=== PATIENT | male | born 2000 | race Caucasian/White ===

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

== ENCOUNTER 2021-03-05 07:30 | Outpatient (RCR) | payer OTHER, SELFPAY ==
[2021-01-19 08:38] VITALS: BMI 27.6
--- NOTE | 2021-01-19 13:05 | HP.OTEVAL_ITS ---
Patient's Visit Information CARLEE BONNER is a 20 year old M, referred to Occupational Therapy by LONNIE Story, with a diagnosis of right ulna fx with DRUJ sprain/strain. Date of Evaluation: 01/19/21 Occupational Therapist: Sandra Badillo, OTR/Bing, CHT - Subjective This 20 year old male was seen for OT eval with dx of ulnar fx with DRUJ sprain/strain- pt states date of Injury was December 16, 2020 pt states he had a fall while playing basketball. pt states he went the next day for x ray and than was casted until today- has right wrist brace on. pt concerns with ROM and stiffness some pain. right handed. 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 pt is hopeful to return to play soon. - Pain right wrist 3 Pain Intensity Range: 1, 4 - ROM Forearm: right sup WFL pronation 30* left WNL Wrist: right 50/40 left 70/50 ROM Comments: pt demo full digit and thumb ROM - Strength Door Frame Builder: right 40# left 110# Lateral Pinch: right 12# left 12# Tripod Pinch: right 6# left 12# - Sensation Sensation Comments: denies - Quick DASH-Disab of Arm,Shoulder& Hand Quick DASH Score: 42.1050 - Goals Goal:: Pt will demo a increase in right supervisor of instruction strength to 80# or greater to return pt to PLOF by d/c Goal:: pt will demo right forearm pronation to 85* or greater to return pt to PLOF by d/c. pt will demo a increase in right wrist flex/ext by 15* or greater to increase pts ind. with ADLs by d/c Goal:: pt will report no pain greater than 1/10 with use of right UE with ADls and IADls- sports by d/c - Rehabilitation General Assessment: Pt is 4 weeks and 6 days from fx. pt demo with limited forearm pronation, wrist ROM and strength limiting pts ind. with ADLs and IADLS. pt would benefit from skilled OT services 2x week for 6 weeks to return pts ROM and strength to return to PLOF. Today therapist ed. pt on AAROM exercises and that therapy would transition to strengthening once pt demo functional ROM. pt demo understanding and agree to POC. Rehabilitation Potential: Good - Anticipated Interventions A/AAROM/PROM, Strengthening, Triggerpoint Release, Modalities, Joint Protection/Energy Conservation, Ergonomic Education - Visit Plan Frequency: 2x /Week Duration: 6 Weeks TEXT: Thank you for the opportunity to evaluate your patient. For Medicare and Medicare HMO plans, please review the plan of care and approve it. It will need to be FAXED BACK to us at [phone] for Medicare purposes. Please let me know if there are questions or concerns regarding this plan of car e. Physician Signature: Date:
--- NOTE | 2021-02-11 10:01 | HP.OTDCSUM ---
It has been my pleasure to treat CARLEE BONNER under orders from LONNIE Story, for the diagnosis of right ulna fx with DRUJ sprain/strain for a total of 9 visit(s). Please see the following information for a summary of their discharge status. % Improvement: 75 Objective/Function: Therapist remeasured pt before session: Right nuclear weapons specialist: 100# (left 110#), Lateral pinch: 24# (left: 24#), and 3-jaw deon pinch: 22# (Left 22#). Before session, ext/flex was measured at 60*/70*, and pronation was measured at 75*. After session and paraffin: Ext/ flex: 70*/75* and pronation: 75*. At the initial Eval: Right ext/flex was 50*/40*, and right pronation was 30*. Patient Goals: Regain Mobility, Regain Strength, Use Hand/Wrist/Arm Normally Again Goal:: Pt will demo a increase in right nuclear weapons specialist strength to 80# or greater to return pt to PLOF by d/c Goal:: pt will demo right forearm pronation to 85* or greater to return pt to PLOF by d/c. pt will demo a increase in right wrist flex/ext by 15* or greater to increase pts ind. with ADLs by d/c Goal:: pt will report no pain greater than 1/10 with use of right UE with ADls and IADls- sports by d/c Plan: D/c Discharge Comments: pt was seen for 9 visits to increase ROM, an increase strength, and a decrease in pain in his R wrist after a fx. Pt has met 3/4 goals, and has returned to a functional level to return to sports and ADLs/IADLs. Pt to see his doctor this week for d/c. Pt agrees with d/c and understand precautions with returning to sports. If there are questions or concerns regarding this patient's occupational therapy, please fell free to call me at [phone]. Thank you for the referral of this patient. Sincerely, Sandra Badillo, OTR/L, CHT
--- NOTE | 2021-02-26 09:39 | HP.OTREVAL ---
LONNIE Story, It has been my pleasure to treat CARLEE BONNER over the last 11 visits for right ulna fx with DRUJ sprain/strain. Please see the progress note below for an update on the occupational therapy plan of care! Subjective: on Tuesday pt injured his right arm while participating in [employer] youth [employer]- pt states he went up to swat a basketball that was caught between the backboard and hoop. pt reports his wrist feels like it did when he broke it the 1st time. Pt arrived 15 minutes late, stating that no change has occurred since Tuesday. He goes to the doctor tomorrow and is hopeful nothing is broken again. Objective/Function: Therapist was able to elicit pain with palpation but not with resistive wrist flex/ext or forearm supination and pronation. pt demo the ability to perform push off test for TFCC but was negative. Increased US to 100%. Pt doc well, stating that when the US ran under the head of the Ulnar, he could feel it running over something, but it didn't hurt. Plan Plan: advised pt to return to dr. initiate wearing his brace again and to ice 2x a day Goals - Goals Patient Goals: Regain Mobility, Regain Strength, Use Hand/Wrist/Arm Normally Again Goal:: Pt will demo a increase in right factory supervisor strength to 80# or greater to return pt to PLOF by d/c Goal:: pt will demo right forearm pronation to 85* or greater to return pt to PLOF by d/c. pt will demo a increase in right wrist flex/ext by 15* or greater to increase pts ind. with ADLs by d/c Goal:: pt will report no pain greater than 1/10 with use of right UE with ADls and IADls- sports by d/c Anticipated Interventions Anticipated Interventions: A/AAROM/PROM, Strengthening, Triggerpoint Release, Modalities, Joint Protection/Energy Conservation, Ergonomic Education Therapist was able to elicit pain with palpation but not with resistives wrist flex/ext or forearm supination and prontation. pt demo the ability to perform push off test for TFCC but was negative. Please do not hesitate to contact me at [phone] by phone or if you have questions or concerns regarding this new plan of care! Sincerely, Sandra Badillo, OTR/L, CHT
--- NOTE | 2021-08-13 13:57 | HP.OT.NRP ---
CARLEE BONNER was seen in my office for initial evaluation on 01/19/21. The following Plan of Care was established for this patient: Initial Frequency: 2x /Week Initial Duration: 6 Weeks Plan: Waiting on an MRI Anticipated Interventions: A/AAROM/PROM, Strengthening, Triggerpoint Release, Modalities, Joint Protection/Energy Conservation, Ergonomic Education This patient was last seen in our office 03/05/21. Pertinent comments regarding their Occupational therapy will appear below: Due to time lapse in services pt D/C from OT. At this point I will be discontinuing this patient from occupational therapy. I would be happy to see this patient again in the future if found appropriate by the physician. Thank you! Sandra Badillo, OTR/L, CHT
== END 2021-03-05 19:00 | disposition home or self-care (01) ==
LOC: OT 07:30
PROVIDERS: Referring Provider Physician Assistant; Visit Provider Physician Assistant
DX: S52.601D Unspecified fracture of lower end of right ulna, subsequent encounter for closed fracture with routine healing (principal); X58.XXXD Exposure to other specified factors, subsequent encounter
CPT/HCPCS: 97035; 97110; 97140; 97166; 97530

== ENCOUNTER → 2021-03-18 12:31 | Outpatient (CLI) | payer OTHER, SELFPAY ==
[2021-02-27 13:24] VITALS: BMI 27.6
--- NOTE | 2021-03-18 12:32 | MRI_ITS ---
STUDY: MRI RIGHT WRIST WITHOUT CONTRAST REASON FOR EXAM: Right wrist pain, prior ulnar fracture with reinjury in February. TECHNIQUE: Standardized fat and water weighted pulse sequences were obtained in all 3 orthogonal planes. COMPARISON: Radiographs 02/27/2021. FINDINGS: Normal visualized distal radius. There is a nondisplaced fracture of the ulnar styloid process without osseous union (T2 sagittal image 9; T1 coronal images 11, 12) with bone edema (inversion recovery coronal images 11, 12). Normal distal radioulnar articulation (DRUJ). Normal triangular fibrocartilaginous complex (TFCC). Normal carpal bones. Normal radiocarpal, intercarpal and midcarpal articulations. Normal pisotriquetral articulation. Normal visualized interosseous scapholunate and lunotriquetral ligaments. Normal extensor tendons. Normal flexor tendons. Normal carpal tunnel with a normal median nerve. Normal carpometacarpal articulation of the thumb. Normal second through fifth carpometacarpal articulations. Normal visualized metacarpal bones. There is no demonstrated soft tissue abnormality. MRI/Upper Ext Joint Only(Routine) IMPRESSION: Nondisplaced fracture of the ulnar styloid process without osseous union and with bone edema. Electronically Signed: Bebo Barrera MD at 14:04 EDT Tel , Service support ,
== END ==
PROVIDERS: Referring Provider Physician Assistant; Visit Provider Physician Assistant
DX: S69.80XA Other specified injuries of unspecified wrist, hand and finger(s), initial encounter (principal); S69.91XA Unspecified injury of right wrist, hand and finger(s), initial encounter
CPT/HCPCS: 73221

== ENCOUNTER 2025-06-26 11:16 | Emergency (ER) | payer BC, SELFPAY ==
[2025-06-26 11:16] VITALS: BP 170/99; PULSE 116; PULSE 119; RESP 16; TEMP 36.8; O2SAT 98; BMI 34.2
--- NOTE | 2025-06-26 11:31 | EX.ED.DYSGE1 ---
HPI History of Present Illness Chief Complaint: Complaint Informant: patient Narrative Narrative: 25-year-old male presenting to the emergency room with blood in his urine. Patient states that for the past couple weeks he has had some burning with urination. He describes the burning as being the tip of his penis. He states that today he noticed blood and burning with urination. He has no history of UTI, he does not know if he is circumcised, he denies any known direct trauma. He is recently . He states that they have been sexually active recently and has been using the occasional lubricant. However he has used that same lubricant in the past without any issues. He denies any testicular issues. No fever. He states he did have a viral upper respiratory infection a couple weeks ago. He denies any inguinal swelling or genital sores. He has never had a kidney stone. [facility] Medical History Closed nondisplaced fracture of styloid process of right ulna Sprain of right hand Right wrist sprain Home Medications ?Medication ?Instructions ?Recorded ?Last Taken ?Type sulfamethoxazole 800 1 tab PO BID #10 TABLETS 06/26/25 Unknown Rx mg-trimethoprim 160 mg tablet Allergy/AdvReac Type Severity Reaction Status Date / Time No Known Allergies Allergy Verified 04/15/21 13:43 Social History Smoking Status: Never smoker ROS ROS ED Constitutional Constitutional ED: Denies chills, fever(s) or weight loss Eyes Eyes: Denies change in vision or diplopia ENT ENT ED: Denies ear pain, rhinorrhea or sore throat Cardiovascular Cardiovascular: Denies chest pain, orthopnea, palpitations or racing heartbeat Respiratory/Chest Respiratory/Chest: Denies cough, dyspnea or orthopnea Gastrointestinal Gastrointestinal: Denies abdominal pain, diarrhea, nausea or vomiting Genitourinary Genitourinary ED: Reports dysuria and hematuria; Denies urinary frequency Musculoskeletal Musculoskeletal: Denies arthralgias or myalgias Integumentary Denies abscess or rash Neurologic Neurologic: Denies headache(s) or weakness Psychiatric Psychiatric: Denies anxiety, depression, suicidal ideation or suicidal thoughts Endocrine Endocrinology: Denies polydipsia, polyphagia or polyuria Allergic/Immunologic Allergic/Immunologic ED: Denies mouth swelling, tongue swelling or urticaria EXAM Physical Exam Const Vital Signs: 06/26/25 11:16 06/26/25 11:16 Temperature 98.3 F Temperature Source Temporal Pulse Rate 116 H 119 H Respiratory Rate 16 Blood Pressure 170/99 H Blood Pressure Mean 122 Pulse Ox 98 Oxygen Delivery Method Room Air Positive well nourished and well developed General Appearance ED: well developed and NAD HEENT Reports normocephalic, head/scalp atraumatic and moist mucous membranes Eyes PERRL and EOMs intact bilaterally Neck no lymphadenopathy, supple and no JVD Resp normal respiratory effort and clear to auscultation bilaterally Cardio regular rate, regular rhythm and no murmurs GI normal to inspection, nondistended, normoactive bowel sounds and non-tender Palpation: soft Narrative: Circumcised male. I do not see any local trauma around the meatus. I do see a small amount of blood in the meatus but cannot see an obvious source. Testicular exam appears normal. No lesions are seen. Back/Spine no CVA tenderness and normal ROM Extremity normal to inspection General Extremety ED: Negative for edema General Extremity: Negative for edema Neuro oriented x3 and CN's II-XII intact bilaterally Sensorium / Orientation: alert Motor Exam: strength 5/5 throughout Psych mental status grossly normal Mood & Affect: Negative for depressed or tearful Skin no rashes or lesions noted and no wounds MDM MDM MDM Narrative Medical decision making narrative: Differential diagnosis includes but not limited to urethritis cystitis kidney stone renal cyst urethral trauma prostatitis Urinalysis demonstrates 5-10 red cells and rare bacteria 0-5 white cells 25 leukocyte esterase negative nitrates. He CT without contrast was obtained. No obvious stone is noted. I do not see obvious renal cyst. Please see the radiologist read for full details. I have asked that the lab perform a urine culture. In the interim I think there is enough symptomology and UA findings that we can place him on Bactrim. If his symptoms persist early return he needs to see urology. Patient is are comfortable with this plan. History & Record Review Discussion w/independent historian: Patient and Significant other Lab Data Attestation: I reviewed the patient's lab results. Labs: Laboratory Results - last 24 hr 06/26/25 11:39 Urine Color Yellow Urine Clarity Clear Urine pH 6.0 Ur Specific [place] 1.020 Urine Protein 30 H Urine Glucose (UA) Normal Urine Ketones Negative Urine Occult Blood 150 H Urine Nitrite Negative Urine Bilirubin Negative Urine Urobilinogen Normal Ur Leukocyte Esterase 25 H Urine RBC 5-10 SEEN Urine WBC 0-5 SEEN Ur Squamous Epith Cells 0-5 SEEN Urine Bacteria RARE Urine Mucus 0 SEEN Radiography Diagnostic Testing: Clinical Impression(s) from Imaging Studies Abdomen/Pelvis CT 06/26/25 12:10 IMPRESSION: No acute abnormality is seen. Reading Location: [id number] Discharge Plan Triage Chief Complaint: Complaint ED Provider: Bulmaro Rodney Dx/Rx/DC Orders Clinical Impression: Hematuria, Dysuria Instructions: What is Hematuria?, ED Dysuria, Uncertain Cause (Adult), ED Cystitis Male Ch Prescriptions: New sulfamethoxazole-trimethoprim 800-160 mg tablet 1 tab PO BID Qty: 10 0RF Primary Care Provider: Care Physician,No Primary Referrals: Henry Handy MD [Med Staff - Active Staff, Urology] Referral Note: if symptoms return or persist Care Physician,No Primary [Primary Care Provider, Medical] Print Language: Wolof Disposition Disposition: Home, Self Care
[2025-06-26 11:44] LABS: Mucous, Urine 0 SEEN /hpf (<or=2+)
[2025-06-26 11:45] LABS: Color, Urine Yellow (Yellow); Glucose, Dipstick Normal (Normal); Ketone-Dipstick Negative (Negative); Leukocyte Esterase-Dipstick 25 /ul (Negative); Nitrite-Dipstick Negative (Negative); Occult Blood-Urine 150 /ul (Negative); Protein-Dipstick 30 mg/dl (Negative); Specific Gravity, Urine 1.020 (1.002-1.030); Urine Bilirubin Dipstick Negative (Negative)
[2025-06-26 11:54] LABS: Red Blood Cells-Urine 5-10 SEEN /hpf (0-5); Squamous Epithelial Cells - UA 0-5 SEEN /hpf (0-5)
--- NOTE | 2025-06-26 12:10 | CT_ITS ---
PROCEDURE: ABDOMEN/PELVIS WITHOUT CONT 06/26/2025 REASON FOR EXAM: HEMATURIA TECHNIQUE: Procedure Code: [id number] Modality: CT Procedure: ABDOMEN/PELVIS WITHOUT CONT Noncontrast technique limits evaluation of the abdominal and pelvic viscera. Coronal and Sagittal reconstruction series were provided. One or more dose reduction techniques were used (e.g., Automated exposure control, adjustment of the mA and/or kV according to patient size, use of iterative reconstruction technique). RADIATION DOSE SUMMARY: CTDlvol: 17.09 mGy DLP: 1071.8 mGycm COMPARISON: None FINDINGS: Lung bases: The lung bases are clear. Liver: Normal size. No obvious mass. Gallbladder: Unremarkable Spleen: Borderline splenomegaly. Pancreas: Normal size. No surrounding inflammation. Adrenals: Unremarkable Kidneys: No urolithiasis. No hydronephrosis. Bladder: Unremarkable Bowel: Unremarkable Appendix: Unremarkable Lymph nodes: Unremarkable. Vasculature: The abdominal aorta and IVC contours are normal. Noncontrast technique limits evaluation. Peritoneum / Retroperitoneum: Unremarkable Bones: Unremarkable CT/Abdomen/Pelvis without Cont IMPRESSION: No acute abnormality is seen. Reading Location: [id number]
[2025-06-26 13:20] VITALS: BP 174/92; PULSE 107; RESP 16; TEMP 36.6; O2SAT 99
--- OUTSIDE RECORDS SUMMARY | 2025-06-26 13:40 | XMS RPT_ITS | CCD ---
Author Organization [facility] CliniSyal Care Team Providers Care Pay Station Department Manager Name Role Phone Leonarda Rosenberg Attending Unavailable PEYMAN ASENCIO Primary Care Unavailable Leonarda Rosenberg Attending Unavailable PEYMAN ASENCIO Primary Care Unavailable Unavailable Primary Care Provider UnavailTIM Stark Referring Unavailable Unavailable Primary Care Provider Unavaildennis lux Problems Problem Classification Problem Date Documented Date Episodic/Chronic Other liver diseases (2 sources) Nonspecific elevation of levels of transaminase and lactic acid dehydrogenase [LDH]; Translations: [Nonspecific elevation of levels of transaminase and lactic acid dehydrogenase [LDH]] Onset: 12-05-2018 Episodic Other non-traumatic joint disorders (2 sources) Acute ankle pain; Translations: [Pain in left ankle and joints of left foot] Episodic Other non-traumatic joint disorders (1 source) Pain in left ankle and joints of left foot; Translations: [Acute left ankle pain] Onset: 11-22-2022 Episodic Other skin disorders (2 sources) Acne vulgaris; Translations: [Acne vulgaris] Onset: 11-21-2018 Episodic Results Test Name Value Interpretation Reference Range Facil ity CNPNon 11-23-2022 CNPN Telephone (UCTR) ROBE BONNER ([id number]) 2 M Date Time Provider Department 11/23/22 SANDRA NEAL [facility] During your visit today, we recorded the following information about you: Sandra Neal APRN.CNP 11/23/2022 9:49 AM Signed Please confirm with patient that radiologist read as no fracture. Follow up with PCP for any continued problems. aSndra Neal APRN.RAMANDEEP Salvador LPN 11/23/2022 10:04 AM Signed Phone call placed, patient advised (see prior provider encounter) Patient verbalized understanding, agreed with plan of care. Raven Salvador LPN Allergies As of Date: 11/23/2022 (No Known Allergies) Date Reviewed: 11/22/2022 Reviewed by: Lucita Fishman - Fully Assessed Reason for Visit: Results [95] Problem List As Of Date: 11/23/2022 (None) Encounter Status:Closed by RAVEN SALVADOR LPN on 11/23/22 Normal [facility] XR Ankle - left AP and Later al and obliqueon 11-23-2022 IMPRESSION: Lateral soft tissue swelling without radiographic evidence of acute osseous injury. Websphere Portal Developer: DEAN Transcribe Date/Time: Nov 23 2022 8:46A Dictated by : PETE BELL MD This examination was interpreted and the report reviewed and electronically signed by: PETE BELL MD on Nov 23 2022 8:47AM [facility] DIVISION OF RADIOLOGY * * *Final Report* * * DATE OF EXAM: Nov 22 2022 7:03PM WOX 5298 - XR ANKLE 3V AP/LAT/OBL LT / PROCEDURE REASON: Acute left ankle pain * * * * Physician Interpretation * * * * TITLE: XR ANKLE 3V AP/LAT/OBL LT CLINICAL INDICATION: Ankle pain TECHNIQUE: 3 view radiographic study of the left ankle COMPARISON: None FINDINGS: Lateral soft tissue swelling. No acute fracture or dislocation identified. DIVISION OF RADIOLOGY Provider, [facility] [place] - 11/23/2022 * * *Final Report* * * DATE OF EXAM: Nov 22 2022 7:03PM WOX 5298 - XR ANKLE 3V AP/LAT/OBL LT / PROCEDURE REASON: Acute left ankle pain * * * * Physician Interpretation * * * * TITLE: XR ANKLE 3V AP/LAT/OBL LT CLINICAL INDICATION: Ankle pain TECHNIQUE: 3 view radiographic study of the left ankle COMPARISON: None FINDINGS: Lateral soft tissue swelling. No acute fracture or dislocation identified. IMPRESSION IMPRESSION: Lateral soft tissue swelling without radiographic evidence of acute osseous injury. Websphere Portal Developer: PSCB Transcribe Date/Time: Nov 23 2022 8:46A Dictated by : PETE BELL MD This examination was interpreted and the report reviewed and electronically signed by: PETE BELL MD on Nov 23 2022 8:47AM EST [facility] XR Ankle - left AP and Later al and obliqueOrdered By: Ccf Provider on 11-23-2022 [facility] CNOVon 11-22-2022 CNOV Office Visit (UCWSTR) ROBE BONNER ([id number]) 2 M Date Time Provider Department 11/22/22 6:30 PM TIM FRANCOIS [facility] During your visit today, we recorded the following information about you: Temperature Pulse Respiration Blood pressure 98.5 degrees 110/minute 16/minute 142/88 Weight 101.2 kg Tim Francois MD 11/22/2022 7:28 PM Addendum Patient presents with: Ankle Injury: left, playing basketball twisted x 2 hours HPI: Left ankle pain: Duration: twisted this afternoon. Location: above the left lateral malleolus Character: sharp Radiation: No. Aggravating: bearing weight Relieving: walking boot Pain relievers: none Associated: swelling Pertinent negatives: Denies numbness The software trainer at the [facility] recommended getting an xray. PAST MEDICAL HISTORY Diagnosis Date NEGATIVE MEDICAL HISTORY PAST SURGICAL HISTORY Procedure Laterality Date NONE MEDICATIONS: No prescriptions on file. ALLERGIES: ALLERGIES No Known Allergies VITALS: BP 142/88 Pulse 110 Temp 36.9 ?C (98.5 ?F) Resp 16 Wt 101.2 kg (223 lb) SpO2 100% PE: Pleasant, in no acute distress. Wearing walking boot. ANKLE: left. Swelling present at and above the lateral malleolus. No erythema, ecchymosis, or deformity. Range of motion: inversion - painful, eversion - painful, anterior drawer- no laxity. painful to bear weight. limping gait. Palpation: Medial malleolus non-painful, lateral malleolus painful, Dorsal proximal midfoot - non-painful, proximal 5th metatarsal non-painful, posterior calcaneus non-painful ASSESSMENT/PLAN: 1. Acute left ankle pain - ICD9: 719.47, ICD10: M25.572 - XR ANKLE GENERAL 3V AP/LAT/OBL LEFT - no acute fracture or dislocation. Radiology interpretation is pending. The patient will be notified if there is a significant finding in the report not discussed at the time of the visit. Rest, ice, analgesia. Advance activity as tolerated. Tim Francois MD Referring Provider: SELF [200] Allergies As of Date: 11/22/2022 (No Known Allergies) Date Reviewed: 11/22/2022 Reviewed by: Lucita Fishman - Fully Assessed Reason for Visit: Ankle Injury [7] Cmt: left, playing basketball twisted x 2 hours Primary Visit Diagnosis:Acute left ankle pain [M25.572] Order(s):XR ANKLE GENERAL 3V AP/LAT/OBL LEFT [[id number]] Order #: [id number] FUTURE Problem List As Of Date: 11/22/2022 (None) Encounter Status:Closed by TIM FRANCOIS on 11/22/22 [facility] XR ANKLE 3V AP/LAT/OBL LTon 11-22-2022 XR ANKLE 3V AP/LAT/OBL LT * * *Final Report* * * DATE OF EXAM: Nov 22 2022 7:03PM WOX 5298 - XR ANKLE 3V AP/LAT/OBL LT / PROCEDURE REASON: Acute left ankle pain * * * * Physician Interpretation * * * * TITLE: XR ANKLE 3V AP/LAT/OBL LT CLINICAL INDICATION: Ankle pain TECHNIQUE: 3 view radiographic study of the left ankle COMPARISON: None FINDINGS: Lateral soft tissue swelling. No acute fracture or dislocation identified. IMPRESSION: Lateral soft tissue swelling without radiographic evidence of acute osseous injury. Websphere Portal Developer: DEAN Transcribe Date/Time: Nov 23 2022 8:46A Dictated by : PETE BELL MD This examination was interpreted and the report reviewed and electronically signed by: PETE BELL MD on Nov 23 2022 8:47AM EST [id number] CN Normal [facility] XR Ankle - left AP and Later al and obliqueon 11-22-2022 Radiology Study observation (narrative) [facility] Progress Noteon 03-11-2020 Target Developer Authentication Interface Message Text Patient ID: Robe Bonner is a 19 y.o. male. His chief complaint(s) include: 19 YEAR WELL CHILD Assessment No diagnosis found. Plan There are no diagnoses linked to this encounter. No follow-ups on file. Subjective He is unaccompanied. 19 YEAR WELL CHILD Home: Robe eats meals with family, has an adult to turn to for help, is permitted and able to make independent decisions and has a home risk identified. Robe is not in foster care. Education: Robe is in freshman year of college and is doing well. Activities & Sports: Robe has friends, plays team sports and plays competitive sports. Drugs: Robe does not use tobacco, does not use drugs, does not use alcohol and does not vape. Safety: Robe has a violence free home. Sex: The patient has never had a sexual partner. Suicidality: Robe has ways to cope with stress. Output Urine and Stool Pattern: Urine and Stool Pattern: Normal stool pattern, normal urine pattern. Sleep Sleeping Difficulty: no difficulty sleeping Teen Anticipatory Guidance The following anticipatory guidance was reviewed during the visit: Nutrition: limit junk food/fast food and soft drinks. Safety: home safety, use safety helmet/gear with activities, date violence and don't carry or use weapons. Social: avoid or limit screen time, explore heritage and cultural diversity, parental limits and consequences for unacceptable behavior and bullying. Health: age appropriate dental care, age appropriate sleep habits, elevated noise and hearing, self testicular exam, talk with trusted adult if feeling sad or nervous, discuss athletic conditioning/ weight training/weight supplements, learn to manage time and activities, be responsible for attendance/ homework/ course selection, learn about self and strengths, recognize and deal with stress, driving risks and limit sun exposure/use sunscreen. Screenings Previous Vaccine Reactions: No. Life events information was reviewed-no referral needed Tuberculosis Concerns: Negative Tuberculosis Screen Concerns: no TB Risk Factors Hearing Vision Concerns: The caregiver has no concerns about the patient's hearing. The caregiver has no concerns about the patient's vision. Hyperlipidemia Concerns: Negative Hyperlipidemia Screen Concerns: no Hyperlipidemia Risk Factors Primary Care Review of Systems Objective Vital Signs 03/11/20 1043 BP: 136/72 Pulse: 78 Temp: 36.2 C (97.2 F) TempSrc: Temporal Weight: 93.6 kg Height: 185.4 cm Body mass index is 27.22 kg/m . Physical Exam Nursing note reviewed. Constitutional: He appears well. He is active. No distress. HENT: Head: Atraumatic. Ears: Right Ear: Tympanic membrane and external ear normal. Left Ear: Tympanic membrane and external ear normal. Nose: Nose normal. Mouth/Throat: Mucous membranes are moist. Dentition is normal. Oropharynx is clear. Eyes: Conjunctivae and EOM are normal. No strabismus. Pupils are equal, round, and reactive to light. Neck: Normal range of motion. Neck supple. Thyroid normal. Cardiovascular: Normal rate, regular rhythm, S1 normal and S2 normal. Pulses are palpable. Heart murmur not heard. Pulmonary/Chest: Breath sounds normal. No respiratory distress. Exhibits no deformity. Abdominal: Soft. Bowel sounds are normal. He exhibits no distension and no mass. There is no hepatosplenomegaly. There is no abdominal tenderness. Genitourinary: Testes and penis normal. No inguinal hernia noted. Musculoskeletal: Normal range of motion. Back: He exhibits no scoliosis. Neurological: He is alert. He has normal strength. He exhibits normal muscle tone. Gait normal. Skin: Skin is warm and not pale. Findings: No rash. Vitals reviewed: Blood pressure 136/72, pulse 78, temperature 36.2 C (97.2 F), temperature source Temporal, height 185.4 cm, weight 93.6 kg. Normal [facility] Progress Noteon 05-03-2019 Target Developer Authentication Interface Message Text Established Patient CC: Acne VICKY Nagel is a 19 y.o. 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 His back, chest and face are involved. This has been present for few years and acne scarring is evident. Patient is status post- 5 months of isotretinoin therapy at 40 mg daily first month and then 80 mg daily thereafter. Acne condition is improving- no new acne lesions have erupted this past month. Denies depression/change in mood/suicidal thougths, headaches, abdominal pain/change in bowel habits, myalgias/arthralgias , changes in vision or hearing, eye problems or dryness, or nosebleeds. Reports mild dry skin on face and lips. Using cream/lotion to face and vaseline to lips which have been effective. Labs have been reviewed. Mildly elevated AST in March; plan to recheck if symptomatic. Parent and patient would like to proceed with isotretinoin treatment today. This will be his final month. Past Medical History Past Medical History: Diagnosis Date Acne Past Surgical History No past surgical history on file. Allergies No Known Allergies Medications Outpatient Encounter Medications as of 05/03/2019 Medication Sig Dispense Refill isotretinoin (ACCUTANE) 40 MG capsule Take 2 pills (80 mg) daily. Take with fatty food. 60 Cap 0 [DISCONTINUED] isotretinoin (ACCUTANE) 40 MG capsule Take 2 pills (80 mg) daily. Take with fatty food. 60 Cap 0 hydrocortisone 2.5 % ointment Apply thin layer to affected areas of lips/face/body twice daily until clear (Patient not taking: Reported on 05/03/2019) 30 g 3 Naproxen Sodium (ALEVE) 220 MG CAPS Take by mouth Pediatric Multiple Vit-C-FA (CHILDRENS CHEWABLE VITAMINS) CHEW Take by mouth daily. (Patient not taking: Reported on 05/03/2019) No facility-administere d encounter medications on file as of 05/03/2019. Family Medical History Family History Problem Relation Age of Onset No known problems Mother No known problems Father No known problems Sister No known problems Brother Alzheimer's Disease Maternal Grandfather Social History Social History Socioeconomic History Marital status: Single Spouse name: Not on file Number of children: Not on file Years of education: Not on file Highest education level: Not on file Occupational History Not on file Social Needs Financial resource strain: Not on file Food insecurity: Worry: Not on file Inability: Not on file Transportation needs: Medical: Not on file Non-medical: Not on file Tobacco Use Smoking status: Never Smoker Smokeless tobacco: Never Used Substance and Sexual Activity Alcohol use: Not on file Drug use: Not on file Sexual activity: Not on file Lifestyle Physical activity: Days per week: Not on file Minutes per session: Not on file Stress: Not on file Relationships Social connections: Talks on phone: Not on file Gets together: Not on file Attends sikhism service: Not on file Active member of club or organization: Not on file Attends meetings of clubs or organizations: Not on file Relationship status: Not on file Intimate partner violence: Fear of current or ex partner: Not on file Emotionally abused: Not on file Physically abused: Not on file Forced sexual activity: Not on file Other Topics Concern Not on file Social History Narrative Not on file Social History Tobacco Use Smoking status: Never Smoker Smokeless tobacco: Never Used Substance Use Topics Alcohol use: Not on file Drug use: Not on file Social History Are there any pets in the home? Yes 1 cat, 1 dog Review of Systems Review of Systems Constitutional: Negative. Skin: Positive for skin lesions. Physical Examination Vitals: 05/03/19 1119 Temp: 36.6 C (97.9 F) Physical Exam Constitutional: He appears well-developed and well-nourished. He appears healthy. HENT: Head: Normocephalic and atraumatic. External nose and ears normal without scars, lesions, or masses Psychiatric: He has a normal mood and affect. His behavior is normal. Skin: Area of Skin Examined: face, chest and back. Clearing nodulocystic acne and some scarring to face, chest, and back. Assessment/Plan Robe was seen today for acne. Diagnoses and all orders for this visit: Nodulocystic acne - isotretinoin (ACCUTANE) 40 MG capsule; Take 2 pills (80 mg) daily. Take with fatty food. Plan: Reviewed action of medication, associated risks, and side effects of isotretinoin with patient and parent. Male and female patients instructed to not share their medication with others and must not donate blood while taking this medication and one month thereafter. Rare and uncommon serious side effects were discussed in detail including depression/suicide/c hanges in mood, inflammatory bowel disease, myalgias/arthralgias , changes in vision or hearing, eye problems, hepatotoxicity, dyslipidemia, bone marrow suppression, hyperostosis, premature epiphyseal closure, and pseudomotor cerebri. Patient was instructed to discontinue medication immediately and contact provider with any symptom of these serious side effects (severe or frequent headaches, nausea, vomiting, or blurred vision; depression or changes in mood; severe stomach pain, diarrhea, or bleeding from rectum; very dry eyes; or yellow color in skin or eyes, and/or dark yellow urine). This medication can be stopped abruptly and does not need tapered. Less serious and very common side effects include dry skin and mucous membranes, cheilitis, epistaxis, desquamation, photosensitivity, and pruritis. Most of the adverse effects associated with isotretinoin can be managed without discontinuing the drug. Take this medication with food (best absorbed with fatty food). Counseling has also been provided on prevention of using two methods of contraception or abstinence (if female), discontinuing all previous acne medications, avoiding consumption of alcohol, vitamins, supplements, herbs, or excessive intake of vitamin A. Sun protection is emphasized. Should also delay any elective procedures until 6 to12 months after treatment due to possible abnormal scar formation and/or delayed healing. After discussion of these important issues, the patient/family wishes to proceed with isotretinoin therapy. - Continue isotretinoin 80 mg daily for final month - If patient becomes symptomatic, plan to recheck labs - hydrocortisone 2.5 % ointment; Apply thin layer to affected areas of lips/face/body twice daily until clear - sun protection and frequent application of thick emollients to skin and lips have been emphasized - ipledge # [id number] Cumulative dose after 6 months= 13,200 mg; 139 mg/kg Follow up PRN. Plan of care, including education on the safe and effective use of medication(s) and/or medical equipment if prescribed, was discussed with the patient/family. Patient/family verbalized understanding and agreed with the treatment options discussed. Leonarda Rosenberg, TRANSPORTATION ANALYST-INVENTORY TAKER May 03, 2019 [facility] Progress Noteon 04-10-2019 Target Developer Authentication Interface Message Text Established Patient CC: Acne VICKY Nagel is a 18 y.o. 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 His back, chest and face are involved. This has been present for few years and acne scarring is evident. Patient is status post- 4 months of isotretinoin therapy at 40 mg daily first month and then 80 mg daily thereafter. Acne condition is improving. Denies depression/change in mood/suicidal thougths, headaches, abdominal pain/change in bowel habits, myalgias/arthralgias , changes in vision or hearing, eye problems or dryness, or nosebleeds. Reports mild dry skin on face and lips. Using cream/lotion to face and vaseline to lips which have been effective. Labs have been reviewed. Mildly elevated AST in March; plan to recheck if symptomatic. Parent and patient would like to proceed with isotretinoin treatment today. Past Medical History Past Medical History: Diagnosis Date Acne Past Surgical History No past surgical history on file. Allergies No Known Allergies Medications Outpatient Encounter Medications as of 04/10/2019 Medication Sig Dispense Refill isotretinoin (ACCUTANE) 40 MG capsule Take 2 pills (80 mg) daily. Take with fatty food. 60 Cap 0 hydrocortisone 2.5 % ointment Apply thin layer to affected areas of lips/face/body twice daily until clear 30 g 3 [DISCONTINUED] isotretinoin (ACCUTANE) 40 MG capsule Take 1 Cap (40 mg) by mouth 2 times daily Take with fatty food. 60 Cap 0 Naproxen Sodium (ALEVE) 220 MG CAPS Take by mouth Pediatric Multiple Vit-C-FA (CHILDRENS CHEWABLE VITAMINS) CHEW Take by mouth daily. No facility-administere d encounter medications on file as of 04/10/2019. Family Medical History Family History Problem Relation Age of Onset No known problems Mother No known problems Father No known problems Sister No known problems Brother Alzheimer's Disease Maternal Grandfather Social History Social History Socioeconomic History Marital status: Single Spouse name: Not on file Number of children: Not on file Years of education: Not on file Highest education level: Not on file Occupational History Not on file Social Needs Financial resource strain: Not on file Food insecurity: Worry: Not on file Inability: Not on file Transportation needs: Medical: Not on file Non-medical: Not on file Tobacco Use Smoking status: Never Smoker Smokeless tobacco: Never Used Substance and Sexual Activity Alcohol use: Not on file Drug use: Not on file Sexual activity: Not on file Lifestyle Physical activity: Days per week: Not on file Minutes per session: Not on file Stress: Not on file Relationships Social connections: Talks on phone: Not on file Gets together: Not on file Attends sikhism service: Not on file Active member of club or organization: Not on file Attends meetings of clubs or organizations: Not on file Relationship status: Not on file Intimate partner violence: Fear of current or ex partner: Not on file Emotionally abused: Not on file Physically abused: Not on file Forced sexual activity: Not on file Other Topics Concern Not on file Social History Narrative Not on file Social History Tobacco Use Smoking status: Never Smoker Smokeless tobacco: Never Used Substance Use Topics Alcohol use: Not on file Drug use: Not on file Social History Are there any pets in the home? Yes 1 cat, 1 dog Review of Systems Review of Systems Constitutional: Negative. Skin: Positive for skin lesions. Physical Examination Vitals: 04/10/19 0914 Temp: 36.7 C (98 F) Physical Exam Constitutional: He appears well-developed and well-nourished. He appears healthy. HENT: Head: Normocephalic and atraumatic. External nose and ears normal without scars, lesions, or masses Psychiatric: He has a normal mood and affect. His behavior is normal. Skin: Area of Skin Examined: face, chest and back. Clearing nodulocystic acne and some scarring to face, chest, and back. Assessment/Plan Robe was seen today for acne. Diagnoses and all orders for this visit: Nodulocystic acne - isotretinoin (ACCUTANE) 40 MG capsule; Take 2 pills (80 mg) daily. Take with fatty food. Plan: Reviewed action of medication, associated risks, and side effects of isotretinoin with patient and parent. Male and female patients instructed to not share their medication with others and must not donate blood while taking this medication and one month thereafter. Rare and uncommon serious side effects were discussed in detail including depression/suicide/c hanges in mood, inflammatory bowel disease, myalgias/arthralgias , changes in vision or hearing, eye problems, hepatotoxicity, dyslipidemia, bone marrow suppression, hyperostosis, premature epiphyseal closure, and pseudomotor cerebri. Patient was instructed to discontinue medication immediately and contact provider with any symptom of these serious side effects (severe or frequent headaches, nausea, vomiting, or blurred vision; depression or changes in mood; severe stomach pain, diarrhea, or bleeding from rectum; very dry eyes; or yellow color in skin or eyes, and/or dark yellow urine). This medication can be stopped abruptly and does not need tapered. Less serious and very common side effects include dry skin and mucous membranes, cheilitis, epistaxis, desquamation, photosensitivity, and pruritis. Most of the adverse effects associated with isotretinoin can be managed without discontinuing the drug. Take this medication with food (best absorbed with fatty food). Counseling has also been provided on prevention of using two methods of contraception or abstinence (if female), discontinuing all previous acne medications, avoiding consumption of alcohol, vitamins, supplements, herbs, or excessive intake of vitamin A. Sun protection is emphasized. Should also delay any elective procedures until 6 to12 months after treatment due to possible abnormal scar formation and/or delayed healing. After discussion of these important issues, the patient/family wishes to proceed with isotretinoin therapy. - Continue isotretinoin 80 mg daily - If patient becomes symptomatic, plan to recheck labs - start hydrocortisone 2.5 % ointment; Apply thin layer to affected areas of lips/face/body twice daily until clear - sun protection emphasized - ipledge # [phone] Cumulative dose at 6 months= 13,200 mg; 139 mg/kg Follow up in 30 days. Plan for 6 months of treatment. Plan of care, including education on the safe and effective use of medication(s) and/or medical equipment if prescribed, was discussed with the patient/family. Patient/family verbalized understanding and agreed with the treatment options discussed. Leonarda Rosenberg, TRANSPORTATION ANALYST-INVENTORY TAKER April 10, 2019 Normal [facility] HFPon 12-06-2018 Bili Indirect 0.2 mg/dL Normal 0.1-10.0 [facility] ([place]) Comment on above: Result Comment: Calc ulated by Rule Performed By: #### H FP #### [address] [address] Albumin/Globulin mass ratio 1.4 {ratio} Normal 0.9-1.6 [facility] ([place]) Comment on above: Performed By: #### H FP #### [address] [address] ALP enzyme act/vol 142 U/L Normal 56-238 formerly [facility] ([place]) Comment on above: Performed By: #### H FP #### [place] [id number] [place] [address] Bili Direct 0.1 mg/dL Normal 0.0-0.4 [facility] ([place]) Comment on above: Performed By: #### H FP #### [address] [address] Bili Total 0.3 mg/dL Normal 0.2-1.2 [facility] ([place]) Comment on above: Performed By: #### H FP #### [address] [address] Globulin mass conc (S) 3.3 G/dL Normal 1.5-3.8 [facility] ([place]) Comment on above: Performed By: #### H FP #### [address] [address] Protein mass conc 7.9 G/dL Normal 6.0-8.5 [facility] ([place]) Comment on above: Performed By: #### H FP #### [place] [id number] Albumin mass conc 4.6 G/dL Normal 3.2-4.8 [facility] ([place]) Comment on above: Performed By: #### H FP #### [place] [id number] ALT enzyme act/vol 42 U/L Normal 12-55 [facility] ([place]) Comment on above: Performed By: #### H FP #### [address] [address] AST enzyme act/vol 41 U/L High 8-34 [facility] ([place]) Comment on above: Performed By: #### H FP #### [place] [address] HFP 11-22-2018 Albumin/Globulin mass ratio 1.3 {ratio} Normal 0.9-1.6 [facility] ([place]) Comment on above: Performed By: #### L IPID, HFP #### [address] [address] ALP enzyme act/vol 124 U/L Normal 56-238 [facility] ([place] Comment on above: Performed By: #### L IPID, HFP #### [address] [address] ALT enzyme act/vol 48 U/L Normal 12-55 [facility] ([place] Comment on above: Performed By: #### L IPID, HFP #### [address] [address] Bili Direct 0.1 mg/dL Normal 0.0-0.4 [facility] ([place]) Comment on above: Performed By: #### L IPID, HFP #### [address] [address] Bili Indirect 0.2 mg/dL Normal 0.1-10.0 [facility] ([place]) Comment on above: Performed By: #### L IPID, HFP #### [address] [address] Bili Total 0.3 mg/dL Normal 0.2-1.2 [facility] ([place]) Comment on above: Performed By: #### L IPID, HFP #### [address] [address] Globulin mass conc (S) 3.5 G/dL Normal 1.5-3.8 [facility] ([place]) Comment on above: Performed By: #### L IPID, HFP #### [address] [address] Protein mass conc 8.0 G/dL Normal 6.0-8.5 [facility] ([place]) Comment on above: Performed By: #### L IPID, HFP #### [address] [address] Albumin mass conc 4.5 G/dL Normal 3.2-4.8 [facility] ([place]) Comment on above: Performed By: #### L IPID, HFP #### [address] [address] AST enzyme act/vol 64 U/L High 8-34 [facility] ([place]) Comment on above: Performed By: #### L IPID, HFP #### [address] [address] LIPIDon 11-22-2018 Cholesterol in HDL mass conc 44 mg/dL Normal 40-59 [facility] ([place]) Comment on above: Result Comment: HDL Reference Interval: Less than 40 Low - high risk 60 or above Optimal/lowers risk Performed By: #### L IPID, HFP #### [address] [address] Cholesterol in LDL mass conc 95 mg/dL Normal 0-129 [facility] ([place]) Comment on above: Result Comment: LDL is a calculated result and requires a 12- hr fast. LDL Reference Interval: Less than 100 Optimal 100-129 Near or above optimal 130-159 Borderline high risk 160-189 High risk 190 and above Very high risk Performed By: #### L IPID, HFP #### [address] [address] Triglyceride mass conc 93 mg/dL Normal 3-149 [facility] ([place]) Comment on above: Result Comment: Trig lyceride Reference Interval: Less than 150 Normal 150-199 Borderline high risk 200-499 High risk 500 or higher Very high risk Performed By: #### L IPID, HFP #### [address] [address] Cholesterol mass conc 158 mg/dL Normal 50-199 [facility] ([place]) Comment on above: Result Comment: Chol esterol Reference Interval: Less than 200 Desirable 200-239 Borderline high risk 240 and above High risk Performed By: #### L IPID, HFP #### [address] [address] Vital Signs Date Time Vital Sign Value Performing Clinician Cedric eduardo 11-22-2022 18:37-0400 Body temperature 98.49 [degF] Tim Francois MD Work Phone: [facility] 11-22-2022 18:37-0400 Body weight 101.15 kg Tim Francois MD Work Phone: [facility] 11-22-2022 18:37-0400 Diastolic blood pressure 88 mm[Hg] Tim Francois MD Work Phone: [facility] 11-22-2022 18:37-0400 Heart rate 110 /min Tim Francois MD Work Phone: [facility] 11-22-2022 18:37-0400 Respiratory rate 16 /min Tim Francois MD Work Phone: [facility] 11-22-2022 18:37-0400 SaO2% (BldA) [Mass fraction] 100 % Tim Francois MD Work Phone: [facility] 11-22-2022 18:37-0400 Systolic blood pressure 142 mm[Hg] Tim Francois MD Work Phone: [facility] Encounters Encounter Date Encounter Type Care Provider Facility Start: 11-22-2022 End: 11-22-2022 ambulatory TIM FRANCOIS Facility:[facility] Start: 11-22-2022 End: 11-22-2022 Subsequent hospital visit by physician [facility] Joanne Work Phone: Radiology Comment on above: Acute left ankle wei n [M25.572] Start: 11-22-2022 End: 11-22-2022 Patient encounter procedure Tim Francois MD Work Phone: [facility] Comment on above: Acute left ankle wei n (Primary Dx) Start: 12-05-2018 End: 12-10-2018 Patient encounter procedure [facility] Facility:A Start: 11-21-2018 End: 11-26-2018 Patient encounter procedure [facility] Facility:A Procedures Date Procedure Procedure Detail Performing Clinician Start: 11-22-2022 Radex ankle complete minimum 3 views Tim Francois MD Work Phone: Plan of Treatment Date Care Activity Detail Author Start: 04-08-2024 Covid-19 Vaccine ( season) Covid-19 Vaccine ( season) [facility] Start: 04-08-2024 Influenza vaccination Influenza Vacc ine (#1) [facility] Start: 04-08-2023 Influenza vaccination INFLUENZ A (Season Ended) [facility] Start: 08-08-2022 DEPRESSION ASSESSMENT DEPRESSION ASS ESSMENT [facility] Start: 05-08-2022 Urine microalbumin profile DTaP,Tdap,Td Vaccine (7 - Td or Tdap) [facility] Start: 12-26-2021 COVID-19 VACCINE (4 - Booster for Pfizer series) COVID-19 VACCINE (4 - Booster for Pfizer series) [facility] Start: 2020 Urine microalbumin profile DTAP,TDAP,TD (1 - Tdap) [facility] Start: 04-08-2020 Meningococcal B Vacc ine: Consider Based On Risk (2 of 2 - Risk Bexsero 2-dose series) Meningococcal B Vaccine: Consider Based On Risk (2 of 2 - Risk Bexsero 2-dose series) [facility] Start: 2019 Anxiety Screening Anxiety Screening [facility] Start: 2019 Depression Screening Depression Scre ening [facility] Start: 2019 HEPATITIS C SCREENING HEPATITIS C [facility] Start: 2019 Hepatitis C screening Hepatitis C [facility] Start: 2019 HIV SCREENING HIV SCREENING [facility] Start: 2019 HIV screening HIV Screening [facility] Start: 2015 PEDS TO ADULT TRANSI TION ANNUAL ASSESSMENT PEDS TO ADULT TRANSITION ANNUAL ASSESSMENT [facility] Start: 2013 PEDS TO ADULT TRANSI TION INITIAL DISCUSSION PEDS TO ADULT TRANSITION INITIAL DISCUSSION [facility] Start: 2012 HPV VACCINE (1 - Mal e 2-dose series) HPV VACCINE (1 - Male 2-dose series) [facility] Start: 2011 MENINGOCOCCAL B: Consider based on risk (1 of 2 - Risk Bexsero 2-dose series) MENINGOCOCCAL B: Consider based on risk (1 of 2 - Risk Bexsero 2-dose series) [facility] Start: 2001 HEPATITIS B (1 of 3 - 3-dose series) HEPATITIS B (1 of 3 - 3-dose series) [facility] End: 12-22-2023 XR ANKLE GENERAL 3V AP/LAT/OBL LEFT XR ANKLE GENERAL 3V AP/LAT/OBL LEFT Radiology Routine Acute left ankle pain 1 Occurrences starting 11/22/2022 until 12/22/2023 [facility] Work Phone: Comment on above: 1 Occurrences starti ng 11/22/2022 until 12/22/2023 XR ANKLE GENERAL 3V AP/LAT/OBL LEFT XR ANKLE GENERAL 3V AP/LAT/OBL LEFT Radiology Routine Acute left ankle pain 11/22/2022 7:03 PM EDT [facility] Work Phone: Immunizations Immunization Date Immunization Notes Care Provider Brennan dwyer 08-28-2018 influenza virus vacc ine, unspecified formulation Xr Joanne Work Phone: [facility] Payers Date Payer Category Payer Unknown RAGHU BHANDARI PPO [id number] 2022-Present [phone] [address] [place] [address] PPO [id number] 2022 Unknown [id number] 2018 Private Health Insurance [id number] 1971 Unknown [id number] 1972 Unknown [id number] Social History Date Type Detail Facility Tobacco smoking stat [facility] Tobacco smoking consumption unknown [facility] Start: 2001 Sex Assigned At Not on file [facility] Gender identity Not on file [facility] inic Progress note 11-22-2022 Note Date & Type Note Facility 11-22-2022 Note HNO ID: [id number] Author: RT Rayne(R) Service: Nuclear Medicine Author Type: Technologist Type: Progress Notes Filed: 11/22/2022 7:03 PM Note Text: Radiology Service Progress Note PATIENT NAME: Robe Bonner DATE OF SERVICE: November 22, 2022 TIME: 6:58 PM PATIENT IDENTITY VERIFICATION COMPLETED USING TWO (2) IDENTIFIERS: Name and Date of confirmed by patient verbally. FALL SCREENING: Has the patient had 2 falls in the last year or 1 fall with injury or currently using an Ambulatory Assistive Device (Walker, Cane, Wheelchair, Crutches, etc.)? No PATIENT GENDER DATA: Male PATIENT RELEVANT IMPLANT DATA REVIEWED: Not Applicable RADIOLOGY DEPARTMENT: General X-ray: Exam(s) Completed: Lower Extremity X-Ray(s): Ankle, Left and Wt. Bearing PERIPHERAL IV DATA: Not applicable SIGNED BY: Kimberly Fairchild RT(R) November 22, 2022 6:58 PM [facility] Progress note 11-22-2022 Note Date & Type Note Facility 11-22-2022 Note HNO ID: [id number] Author: Tim Francois MD Service: ? Author Type: Physician Type: Progress Notes Filed: 11/22/2022 7:28 PM Note Text: Patient presents with: Ankle Injury: left, playing basketball twisted x 2 hours HPI: Left ankle pain: Duration: twisted this afternoon. Location: above the left lateral malleolus Character: sharp Radiation: No. Aggravating: bearing weight Relieving: walking boot Pain relievers: none Associated: swelling Pertinent negatives: Denies numbness The software trainer at the [facility] recommended getting an xray. PAST MEDICAL HISTORY Diagnosis Date NEGATIVE MEDICAL HISTORY PAST SURGICAL HISTORY Procedure Laterality Date NONE MEDICATIONS: No prescriptions on file. ALLERGIES: ALLERGIES No Known Allergies VITALS: BP 142/88 Pulse 110 Temp 36.9 ?C (98.5 ?F) Resp 16 Wt 101.2 kg (223 lb) SpO2 100% PE: Pleasant, in no acute distress. Wearing walking boot. ANKLE: left. Swelling present at and above the lateral malleolus. No erythema, ecchymosis, or deformity. Range of motion: inversion - painful, eversion - painful, anterior drawer- no laxity. painful to bear weight. limping gait. Palpation: Medial malleolus non-painful, lateral malleolus painful, Dorsal proximal midfoot - non-painful, proximal 5th metatarsal non-painful, posterior calcaneus non-painful ASSESSMENT/PLAN: 1. Acute left ankle pain - ICD9: 719.47, ICD10: M25.572 - XR ANKLE GENERAL 3V AP/LAT/OBL LEFT - no acute fracture or dislocation. Radiology interpretation is pending. The patient will be notified if there is a significant finding in the report not discussed at the time of the visit. Rest, ice, analgesia. Advance activity as tolerated. Tim Francois MD [facility] History of Present illness Narrative 11-22-2022 Kimberly Fairchild RT(R) - 11/22/2022 7:00 PM EDT Note Date & Type Note Facility 11-22-2022 History of Presen t illness Narrative Radiology Service Progress Note PATIENT NAME: Robe Bonner DATE OF SERVICE: November 22, 2022 TIME: 6:58 PM PATIENT IDENTITY VERIFICATION COMPLETED USING TWO (2) IDENTIFIERS: Name and Date of confirmed by patient verbally. FALL SCREENING: Has the patient had 2 falls in the last year or 1 fall with injury or currently using an Ambulatory Assistive Device (Walker, Cane, Wheelchair, Crutches, etc.)? No PATIENT GENDER DATA: Male PATIENT RELEVANT IMPLANT DATA REVIEWED: Not Applicable RADIOLOGY DEPARTMENT: General X-ray: Exam(s) Completed: Lower Extremity X-Ray(s): Ankle, Left and Wt. Bearing PERIPHERAL IV DATA: Not applicable SIGNED BY: RT Rayne(R) November 22, 2022 6:58 PM documented in this encounter [facility] History of Present illness Narrative 11-22-2022 Tim Francois MD - 11/22/2022 6:43 PM EDT Note Date & Type Note Facility 11-22-2022 History of Presen t illness Narrative Patient presents with: Ankle Injury: left, playing basketball twisted x 2 hours HPI: Left ankle pain: Duration: twisted this afternoon. Location: above the left lateral malleolus Character: sharp Radiation: No. Aggravating: bearing weight Relieving: walking boot Pain relievers: none Associated: swelling Pertinent negatives: Denies numbness The software trainer at the [facility] recommended getting an xray. PAST MEDICAL HISTORY Diagnosis Date NEGATIVE MEDICAL HISTORY PAST SURGICAL HISTORY Procedure Laterality Date NONE MEDICATIONS: No prescriptions on file. ALLERGIES: ALLERGIES No Known Allergies VITALS: BP 142/88 Pulse 110 Temp 36.9 C (98.5 F) Resp 16 Wt 101.2 kg (223 lb) SpO2 100% PE: Pleasant, in no acute distress. Wearing walking boot. ANKLE: left. Swelling present at and above the lateral malleolus. No erythema, ecchymosis, or deformity. Range of motion: inversion - painful, eversion - painful, anterior drawer- no laxity. painful to bear weight. limping gait. Palpation: Medial malleolus non-painful, lateral malleolus painful, Dorsal proximal midfoot - non-painful, proximal 5th metatarsal non-painful, posterior calcaneus non-painful ASSESSMENT/PLAN: 1. Acute left ankle pain - ICD9: 719.47, ICD10: M25.572 - XR ANKLE GENERAL 3V AP/LAT/OBL LEFT - no acute fracture or dislocation. Radiology interpretation is pending. The patient will be notified if there is a significant finding in the report not discussed at the time of the visit. Rest, ice, analgesia. Advance activity as tolerated. Tim Francois MD documented in this encounter [facility] Evaluation note Note Date & Type Note Facility Evaluation note Diagnosis Acute left ankle pain- Primary documented in this encounter [facility] Evaluation note Note Date & Type Note Facility Evaluation note Diagnosis Acute left ankle pain documented in this encounter [facility] Reason for referral (narrative) Diagnostic Procedure Only (Routine) - Closed Note Date & Type Note Facility Reason for referral (narrati ve) Specialty Diagnoses / Procedures Referred By Contac t Referred To Contact XR IMAGING Diagnoses Acute left ankle pain Procedures XR ANKLE GENERAL 3V AP/LAT/OBL LEFT RADEX ANKLE COMPLETE MINIMUM 3 VIEWS Tim Francois MD [address] [place] [address] Xr Imaging Referral ID Status Reason Start Date Expiration Date V isits Requested Visits Authorized [id number] Closed Auto-Generate d Referral 11/22/2022 12/22/2023 1 1 [facility] Reason for referral (narrative) Diagnostic Procedure Only (Routine) - Closed Note Date & Type Note Facility Reason for referral (narrati ve) Specialty Diagnoses / Procedures Referred By Contac t Referred To Contact XR IMAGING Diagnoses Acute left ankle pain Procedures XR ANKLE GENERAL 3V AP/LAT/OBL LEFT RADEX ANKLE COMPLETE MINIMUM 3 VIEWS Tim Francois MD [address] [place] [address] [place] [address] Referral ID Status Reason Start Date Expiration Date V isits Requested Visits Authorized [id number] Closed Auto-Generate d Referral 11/22/2022 12/22/2023 1 1 [facility] Reason for visit Narrative Diagnostic Procedure Only (Routine) - Closed Note Date & Type Note Facility Reason for visit Narrative Specialty Diagnoses / Procedures Referred By Contac t Referred To Contact XR IMAGING Diagnoses Acute left ankle pain Procedures XR ANKLE GENERAL 3V AP/LAT/OBL LEFT RADEX ANKLE COMPLETE MINIMUM 3 VIEWS Tim Francois MD [address] [place] [address] [place] [address] Referral ID Status Reason Start Date Expiration Date V isits Requested Visits Authorized [id number] Closed Auto-Generate d Referral 11/22/2022 12/22/2023 1 1 [facility] Summary Purpose Family History No Family History Records FoundNo Family History Records FoundNo Family History Records Found Advance Directives No Advanced Directives Records FoundNo Advanced Directives Records FoundNo Advanced Directives Records Found Additional Source Comments (unrecognized sect ion and content) No Status Records FoundNo Status Records FoundNo Status Records Found INFORMATION SOURCE (unrecogn ized section and content) DATE CREATED AUTHOR 12/20/2018 [facility] ([place]) DATE CREATED AUTHOR AUTHOR'S ORGANIZ ATION 03/11/2020 [facility] DATE CREATED AUTHOR AUTHOR'S ORGANIZ ATION 11/23/2022 [facility] Source Comments (unrecognize d section and content) In the event this informatio n is protected by the Federal Confidentiality of Alcohol and Drug Abuse Patient Records regulations: The Federal rules restrict any use of the information to criminally investigate or prosecute any alcohol or drug abuse patient.[facility] the event this information is protected by the Federal Confidentiality of Alcohol and Drug Abuse Patient Records regulations: The Federal rules restrict any use of the information to criminally investigate or prosecute any alcohol or drug abuse patient.[facility] Reason for Visit (unrecogniz ed section and content) Reason Comments Ankle Injury left, playing basket ball twisted x 2 hours FOR RECORDS PERTAINING TO PATIENTS WHO ARE OR HAVE BEEN ENROLLED IN A CHEMICAL DEPENDENCY/SUBSTANCEABUSE PROGRAM, SOME INFORMATION MAY BE OMITTED. This clinical summary was aggregated from multiple sources. Caution should be exercised in using it in the provision of clinical care. This summary normalizes information from multiple sources, and as a consequence, information in this document may materially change the coding, format and clinical context of patient data. In addition, data may be omitted in some cases. CLINICAL DECISIONS SHOULD BE BASED ON THE PRIMARY CLINICAL RECORDS. [facility] [employer] [facility]. provides no warranty or guarantee of the accuracy or completeness of information in this document.
== END 2025-06-26 13:21 | disposition home or self-care (01) ==
PROVIDERS: Emergency Provider Emergency Medicine; Visit Provider Emergency Medicine
DX: R31.9 Hematuria, unspecified (principal); R30.0 Dysuria
CPT/HCPCS: 74176; 81001; 87077; 87086; 87088; 87186; 99282